=== PATIENT | male | born 1950 ===

== ENCOUNTER 2021-07-11 08:45 | Inpatient (IN) | payer OTHER ==
[~2021-07-11] VITALS: Ht 165.1 cm; Wt 63.5 kg
== END 2021-07-20 12:42 | disposition home or self-care (01) | DRG 330 ==
LOC: ADM 08:45 → EDSTATUS 08:45 → SURH 07-18 08:45 → O/R 07-18 14:09 → SURH 07-18 14:12
PROVIDERS: ADMIT Colon & Rectal Surgery; ATTEND Colon & Rectal Surgery
PROC: 3E0F7SF Introduction of Other Gas into Respiratory Tract, Via Natural or Artificial Opening (ICD-10-PCS; 2021-07-18)
PROC: 0D1B4Z4 Bypass Ileum to Cutaneous, Percutaneous Endoscopic Approach (ICD-10-PCS; principal; 2021-07-18 10:00)
DX: C18.0 Malignant neoplasm of cecum (principal); K92.1 Melena; C78.7 Secondary malignant neoplasm of liver and intrahepatic bile duct; K56.690 Other partial intestinal obstruction

== ENCOUNTER 2021-08-08 07:18 | Day surgery (SDC) | payer OTHER ==
[~2021-08-08 07:18] MED LIST: IMODIUM PO; PROBIOTIC PO
== END 2021-08-08 16:10 | disposition home or self-care (01) ==
LOC: CIR.AMB 07:18
PROVIDERS: ATTEND Colon & Rectal Surgery
DX: C18.0 Malignant neoplasm of cecum (principal); Z85.038 Personal history of other malignant neoplasm of large intestine; Z20.822 Contact with and (suspected) exposure to COVID-19; H93.11 Tinnitus, right ear